=== PATIENT | male | born 1945 | race Caucasian/White ===

== ENCOUNTER 2019-12-08 00:27 | Observation (INO) ==
[2019-12-08 01:03] LABS: Hematocrit 35 % (42-52); Hemoglobin 12.6 g/dL (14.0-18.0); Mean Corpuscular HGB Conc 36 g/dL (31-36); Mean Corpuscular Hemoglobin 33 pg (27-31); Mean Corpuscular Volume 94 fL (80-94); Platelet Count 165 10^3/uL (150-450); Red Blood Count 3.78 10^6 /uL (4.18-5.48); Red Cell Distribution Width 13 % (10-15); White Blood Count 6.6 10^3/uL (3.5-10.8)
[2019-12-08 01:19] LABS: Albumin/Globulin Ratio 1.9 (1-3); BUN/Creatinine Ratio 17.9 (8-20); Calcium 8.5 mg/dL (8.6-10.3); EGFR African American 118.4 (>60); EGFR Non-African American 97.8 (>60); Globulin 2.1 g/dL (2-4); Potassium 3.7 mmol/L (3.5-5.0); Total Bilirubin 0.4 mg/dL (0.2-1.0); Total Protein 6.1 g/dL (6.4-8.9)
[2019-12-08 01:21] LABS: Troponin I 0.01 ng/mL (<0.03)
[2019-12-08 01:52] LABS: Urine Appearance Clear; Urine Bilirubin Negative (Negative); Urine Blood 1+ (Negative); Urine Color Yellow; Urine Glucose Negative (Negative); Urine Ketones Negative (Negative); Urine Nitrite Negative (Negative); Urine Protein Negative (Negative); Urine Specific Gravity 1.006 (1.010-1.030); Urine Urobilinogen Negative (Negative)
[2019-12-08 01:55] LABS: Urine Bacteria Absent (Absent); Urine Red Blood Cell Trace(0-2/hpf) (Absent); Urine White Blood Cell Trace(0-5/hpf) (Absent)
[2019-12-08 02:14] LABS: TSH (Thyroid Stimulating Horm) 1.88 mcIU/mL (0.34-5.60)
[2019-12-08] MEDS ORDERED: NS 0.9% 1000 ml BAG 1,000 ML IV SCH (02:30)
[2019-12-08] MEDS ORDERED: NS 0.9% 1000 ml BAG 2,000 ML IV ONE (02:31)
[2019-12-08] MEDS ORDERED: Enoxaparin 40 MG/0.4 ML SYR SUBCUT SCH (03:00)
[2019-12-08 03:09] LABS: ABS Basophils 0.1 10^3/ul (0-0.2); ABS Eosinophils 0.1 10^3/ul (0-0.6); ABS Lymphocytes 2.3 10^3/ul (1.0-4.8); ABS Monocytes 0.6 10^3/ul (0-0.8); Eosinophil % 1.8 %; Lymphocyte % 34.3 %; Nucleated Red Blood Cells % 0.1
[2019-12-08] MEDS ORDERED: NS 0.9% 1000 ml BAG 1,000 ML IV ONE (03:30)
[2019-12-08] MEDS ORDERED: Ondansetron 4 mg VIAL 2 MG/ML 2 ml VIAL IV PRN (03:33)
[2019-12-08 03:40] LABS: Urine Benzodiazepine Screen Presumptive Positive (None Detect); Urine Opiates Screen Presumptive Positive (None Detect)
[2019-12-08] MEDS ORDERED: Calcium Carb 1250 mg TAB (500 mg elemental calcium) PO SCH (09:00)
[2019-12-08 11:27] VITALS: BP 126/92
[2019-12-08 17:31] LABS: BUN/Creatinine Ratio 16.3 (8-20); Blood Urea Nitrogen 13 mg/dL (6-24); CO2 Carbon Dioxide 26 mmol/L (22-32); Calcium 9.4 mg/dL (8.6-10.3); Chloride 95 mmol/L (101-111); Glucose 113 mg/dL (70-100); Sodium 131 mmol/L (135-145)
[2019-12-08 18:17] LABS: Anion Gap 10 mmol/L (2-11)
== END 2019-12-08 18:07 | disposition home or self-care (01) ==
LOC: MEDTELE 00:27 → ED 00:27 → MEDTELE 04:07
PROVIDERS: ADMIT Internal Medicine; ATTEND Internal Medicine

== ENCOUNTER 2020-02-21 06:06 | Inpatient (IN) ==
[~2020-02-21 06:06] MED LIST: Buffered Lidocaine 1% SYRIN 1 ml INTRADERM ONE; Dexamethasone IV 4 MG/ML VIAL 1 ml VIAL IV SLOW PU ONE; Lactated Ringers 1000 ml BAG 1,000 ML IV SCH
[2020-02-21] MEDS ORDERED: ceFAZolin 2 GM PREMIX 2 GM/50 ML BAG ONE (06:33)
[2020-02-21] MEDS ORDERED: Buffered Lidocaine 1% SYRIN 1 ml INTRADERM ONE (06:33)
[2020-02-21] MEDS ORDERED: Dexamethasone IV 4 MG/ML VIAL 1 ml VIAL ONE (06:33)
[2020-02-21] MEDS ORDERED: Vancomycin 1,000 MG VIAL ONE (06:56)
[2020-02-21] MEDS ORDERED: Lidocaine 1% w EPI 1:200,000 SDV 30 ML VIAL ONE (06:56)
[2020-02-21] MEDS ORDERED: Bupivacaine 0.5% SDV PF 30ML VIAL ONE (06:57)
[2020-02-21] MEDS ORDERED: Bacitracin OINTMENT TUBE ONE (06:57)
[2020-02-21] MEDS ORDERED: fentaNYL 250 mcg/5 ml 50 MCG/ML 5 ml VIAL (250 MCG) ONE (06:58)
[2020-02-21] MEDS ORDERED: Bacitracin INJECTION 50,000 UNITS ONE ×2 (06:58→09:08)
[2020-02-21] MEDS ORDERED: ceFAZolin VIAL VIAL ONE (06:58)
[2020-02-21] MEDS ORDERED: Propofol 10 MG/ML 20 ML BTL ONE (06:58)
[2020-02-21] MEDS ORDERED: Lidocaine 2% PF 5 ML VIAL ONE (06:58)
[2020-02-21] MEDS ORDERED: Succinylcholine 200 mg VIAL 20 mg/ml 10 ml VIAL (200 mg) ONE (06:58)
[2020-02-21] MEDS ORDERED: Rocuronium 50 mg VIAL 10 mg/ml 5 ml VIAL (50 mg) ONE (06:59)
[2020-02-21] MEDS ORDERED: Ketamine HCL 50 mg/ml 10 ml VIAL (500 MG) ONE (06:59)
[2020-02-21] MEDS ORDERED: EPHEDrine (Pressors) 50 MG/ML VIAL ONE (07:10)
[2020-02-21] MEDS ORDERED: Phenylephrine IV 10 MG/ML 1 ml VIAL ONE (07:10)
[2020-02-21] MEDS ORDERED: Artificial Tear OPHTH.OINT 3.5 GM ONE (07:54)
[2020-02-21] MEDS ORDERED: Acetaminophen IV 1 GM/100ML 100 ML ONE (07:59)
[2020-02-21] MEDS ORDERED: Midazolam 2 mg/2 ml VIAL 1 mg/ml 2 ml VIAL (2 mg) ONE (07:59)
[2020-02-21] MEDS ORDERED: Naloxone 0.4 mg VIAL 0.4 mg/ml 1 ml VIAL IV PRN (08:10)
[2020-02-21] MEDS ORDERED: Ondansetron 4 mg VIAL 2 MG/ML 2 ml VIAL IV PRN ×2 (08:10→12:25)
[2020-02-21] MEDS ORDERED: Remifentanil 2 MG VIAL ONE ×2 (08:32→09:55)
[2020-02-21] MEDS ORDERED: Propofol 1,000 MG/100 ML BTL ONE (09:31)
[2020-02-21] MEDS ORDERED: Ondansetron 4 mg VIAL 2 MG/ML 2 ml VIAL ONE (10:46)
[2020-02-21] MEDS ORDERED: HYDROmorphone 1 MG/1 ML SYRINGE ONE ×2 (11:29→12:08)
[2020-02-21] MEDS: HYDROmorphone 1 MG/1 ML SYRINGE IV PRN ×5 (12:09→12:45)
[2020-02-21] MEDS ORDERED: Magnesium Hydroxide LIQ 30 ML UDC PO PRN (12:25)
[2020-02-21] MEDS ORDERED: Albuterol 2.5mg/3 ml (0.083%) NEB.SOLN INH PRN (12:36)
[2020-02-21] MEDS ORDERED: Morphine 2 MG/ML SYRINGE IV PRN (12:36)
[2020-02-21] MEDS ORDERED: fentaNYL 100 mcg/2 ml 50 MCG/ML VIAL ONE (12:53)
[2020-02-21] MEDS: fentaNYL 100 mcg/2 ml 50 MCG/ML VIAL IV PRN ×4 (12:56→13:43)
[2020-02-21] MEDS: NS 0.9% 1000 ml BAG 1,000 ML IV SCH (15:10)
[2020-02-21] MEDS: Clindamycin 900 MG/D5W BAG 900 MG/50 ML BAG IVPB SCH ×2 (15:18→23:56)
[2020-02-21] MEDS: Acetaminophen IV 1 GM/100ML 100 ML IVPB SCH (16:14)
[2020-02-21] MEDS: Orphenadrine Citrate INJ 30 mg/ml 2 ml VIAL (60 mg) IV SCH (18:23)
[2020-02-21] MEDS: ROSUVASTATIN 20 MG PO SCH (18:23)
[2020-02-21] MEDS: SACUBITRIL PO SCH (21:40)
[2020-02-21] MEDS: VALSARTAN PO SCH (21:40)
[2020-02-21] MEDS: DULoxetine DR 60 mg CAP PO SCH (21:40)
[2020-02-22] MEDS: Acetaminophen IV 1 GM/100ML 100 ML IVPB SCH ×2 (00:46→09:50)
[2020-02-22] MEDS: NS 0.9% 1000 ml BAG 1,000 ML IV SCH ×2 (02:39→14:57)
[2020-02-22] MEDS: Orphenadrine Citrate INJ 30 mg/ml 2 ml VIAL (60 mg) IV SCH (05:34)
[2020-02-22 05:44] LABS: ABS Lymphocytes 0.5 10^3/ul (1.0-4.8); ABS Monocytes 0.5 10^3/ul (0-0.8); ABS Neutrophils 7.3 10^3/ul (1.5-7.7); Hematocrit 32 % (42-52); Hemoglobin 11.1 g/dL (14.0-18.0); Lymphocyte % 6.1 %; Mean Corpuscular HGB Conc 34 g/dL (31-36); Mean Corpuscular Hemoglobin 32 pg (27-31); Mean Corpuscular Volume 92 fL (80-94); Mean Platelet Volume 8.2 fL (7.4-10.4); Platelet Count 182 10^3/uL (150-450); Red Blood Count 3.52 10^6 /uL (4.18-5.48); Red Cell Distribution Width 12 % (10-15); White Blood Count 8.3 10^3/uL (3.5-10.8)
[2020-02-22 06:02] LABS: BUN/Creatinine Ratio 25.3 (8-20); Calcium 8.6 mg/dL (8.6-10.3); EGFR African American 116.7 (>60); EGFR Non-African American 96.4 (>60); Potassium 4.3 mmol/L (3.5-5.0)
[2020-02-22] MEDS: Polyethylene Glycol 3350 17 GM PACKET PO SCH (08:21)
[2020-02-22] MEDS: DULoxetine DR 60 mg CAP PO SCH ×2 (08:22→21:20)
[2020-02-22] MEDS: Calcium Carb 1250 mg TAB (500 mg elemental calcium) PO SCH (08:23)
[2020-02-22] MEDS: Clindamycin 900 MG/D5W BAG 900 MG/50 ML BAG IVPB SCH ×2 (08:23→14:59)
[2020-02-22] MEDS: Fluticasone NASAL SPRAY 50MCG 16 gm SPRAY BTL INTRANASAL SCH (08:23)
[2020-02-22] MEDS: SACUBITRIL PO SCH ×2 (08:24→21:20)
[2020-02-22] MEDS: VALSARTAN PO SCH ×2 (08:24→21:20)
[2020-02-22] MEDS: Enoxaparin 40 MG/0.4 ML SYR SUBCUT SCH (09:50)
[2020-02-22] MEDS: ROSUVASTATIN 20 MG PO SCH (16:57)
[2020-02-23] MEDS: NS 0.9% 1000 ml BAG 1,000 ML IV SCH ×2 (00:03→09:56)
[2020-02-23] MEDS: Clindamycin 900 MG/D5W BAG 900 MG/50 ML BAG IVPB SCH ×3 (00:03→15:29)
[2020-02-23] MEDS: HYDROcodone/ACETAMIN 5/325 mg TAB PO PRN ×2 (01:05→07:34)
[2020-02-23 07:13] LABS: ABS Lymphocytes 1.4 10^3/ul (1.0-4.8); ABS Monocytes 1.1 10^3/ul (0-0.8); ABS Neutrophils 9.2 10^3/ul (1.5-7.7); Eosinophil % 0.1 %; Hematocrit 35 % (42-52); Hemoglobin 12.1 g/dL (14.0-18.0); Lymphocyte % 11.8 %; Mean Corpuscular HGB Conc 35 g/dL (31-36); Mean Corpuscular Hemoglobin 32 pg (27-31); Mean Corpuscular Volume 92 fL (80-94); Mean Platelet Volume 8.3 fL (7.4-10.4); Platelet Count 200 10^3/uL (150-450); Red Blood Count 3.75 10^6 /uL (4.18-5.48); Red Cell Distribution Width 12 % (10-15); White Blood Count 11.7 10^3/uL (3.5-10.8)
[2020-02-23 07:31] LABS: BUN/Creatinine Ratio 12.9 (8-20); Calcium 8.6 mg/dL (8.6-10.3); EGFR African American 154.3 (>60); EGFR Non-African American 127.5 (>60); Magnesium 1.4 mg/dL (1.9-2.7); Potassium 3.6 mmol/L (3.5-5.0)
[2020-02-23] MEDS ORDERED: Magnesium Sulfate IV 0.5 GM/ML 2 ml VIAL (1 gm) IVPB ONE (07:48)
[2020-02-23] MEDS ORDERED: Magnesium Sulfate 4 GM IV IVPB ONE (08:00)
[2020-02-23] MEDS: DULoxetine DR 60 mg CAP PO SCH ×2 (08:57→22:29)
[2020-02-23] MEDS: Enoxaparin 40 MG/0.4 ML SYR SUBCUT SCH (08:58)
[2020-02-23] MEDS: Calcium Carb 1250 mg TAB (500 mg elemental calcium) PO SCH (08:58)
[2020-02-23] MEDS: SACUBITRIL PO SCH ×2 (08:59→22:29)
[2020-02-23] MEDS: VALSARTAN PO SCH ×2 (08:59→22:29)
[2020-02-23] MEDS: Fluticasone NASAL SPRAY 50MCG 16 gm SPRAY BTL INTRANASAL SCH (08:59)
[2020-02-23] MEDS: Polyethylene Glycol 3350 17 GM PACKET PO SCH (09:00)
[2020-02-23] MEDS: ROSUVASTATIN 20 MG PO SCH (17:17)
[2020-02-24] MEDS: Clindamycin 900 MG/D5W BAG 900 MG/50 ML BAG IVPB SCH ×2 (00:08→08:12)
[2020-02-24] MEDS: HYDROcodone/ACETAMIN 5/325 mg TAB PO PRN ×2 (02:47→13:35)
[2020-02-24 04:59] LABS: ABS Lymphocytes 1.4 10^3/ul (1.0-4.8); ABS Monocytes 0.9 10^3/ul (0-0.8); Eosinophil % 0.2 %; Hematocrit 31 % (42-52); Hemoglobin 11.1 g/dL (14.0-18.0); Lymphocyte % 15.2 %; Mean Corpuscular HGB Conc 36 g/dL (31-36); Mean Corpuscular Hemoglobin 33 pg (27-31); Mean Corpuscular Volume 91 fL (80-94); Mean Platelet Volume 8.2 fL (7.4-10.4); Platelet Count 160 10^3/uL (150-450); Red Blood Count 3.41 10^6 /uL (4.18-5.48); Red Cell Distribution Width 12 % (10-15); White Blood Count 9.4 10^3/uL (3.5-10.8)
[2020-02-24 05:17] LABS: BUN/Creatinine Ratio 10.7 (8-20); Calcium 8.6 mg/dL (8.6-10.3); EGFR African American 173.5 (>60); EGFR Non-African American 143.4 (>60); Potassium 3.1 mmol/L (3.5-5.0)
[2020-02-24] MEDS ORDERED: Magnesium Sulfate 2 gm BAG 2 GM/50 ML BAG IVPB ONE (07:53)
[2020-02-24] MEDS ORDERED: KCL 20 MEQ/100 ML IVPREMIX 20 MEQ/100 ML BAG IV ONE (07:58)
[2020-02-24] MEDS: DULoxetine DR 60 mg CAP PO SCH (08:15)
[2020-02-24] MEDS: SACUBITRIL PO SCH (08:16)
[2020-02-24] MEDS: VALSARTAN PO SCH (08:16)
[2020-02-24] MEDS: Calcium Carb 1250 mg TAB (500 mg elemental calcium) PO SCH (08:16)
[2020-02-24] MEDS: Fluticasone NASAL SPRAY 50MCG 16 gm SPRAY BTL INTRANASAL SCH (08:17)
[2020-02-24] MEDS: Enoxaparin 40 MG/0.4 ML SYR SUBCUT SCH (08:19)
[2020-02-24] MEDS ORDERED: Potassium Chlor 20 meq TAB.ER PO SCH (09:00)
[2020-02-24 12:04] VITALS: BP 142/78
[2020-02-24 12:15] LABS: BUN/Creatinine Ratio 12.7 (8-20); Calcium 8.6 mg/dL (8.6-10.3); EGFR African American 151.5 (>60); EGFR Non-African American 125.2 (>60); Magnesium 1.7 mg/dL (1.9-2.7)
== END 2020-02-24 14:35 | disposition home or self-care (01) | DRG 519 ==
LOC: AA 06:06 → SSU 14:01
PROVIDERS: ADMIT Neurological Surgery; ATTEND Neurological Surgery

== ENCOUNTER 2020-07-22 06:12 | Observation (INO) ==
[~2020-07-22 06:12] MED LIST changes: -Dexamethasone IV 4 MG/ML VIAL 1 ml VIAL IV SLOW PU ONE; +ceFAZolin 2 GM PREMIX 2 GM/50 ML BAG ONE
[2020-07-22] MEDS ORDERED: Labetalol IV 5 MG/ML 20 ml VIAL ONE (07:00)
[2020-07-22] MEDS ORDERED: fentaNYL 250 mcg/5 ml 50 MCG/ML 5 ml VIAL (250 MCG) ONE (07:00)
[2020-07-22] MEDS ORDERED: Propofol 10 MG/ML 20 ML BTL ONE (07:01)
[2020-07-22] MEDS ORDERED: Dexamethasone IV 4 MG/ML VIAL 1 ml VIAL ONE (07:01)
[2020-07-22] MEDS ORDERED: ROPIVACAINE 5 MG/ML 30 ML BTL (0.5%) ONE (07:01)
[2020-07-22] MEDS ORDERED: Lidocaine 2% PF 5 ML VIAL ONE (07:01)
[2020-07-22] MEDS ORDERED: Rocuronium 50 mg VIAL 10 mg/ml 5 ml VIAL (50 mg) ONE (07:01)
[2020-07-22] MEDS ORDERED: Midazolam 2 mg/2 ml VIAL 1 mg/ml 2 ml VIAL (2 mg) ONE (07:06)
[2020-07-22] MEDS ORDERED: Vancomycin 1,000 MG VIAL ONE (07:23)
[2020-07-22] MEDS ORDERED: EPHEDrine (Pressors) 50 MG/ML VIAL ONE (08:51)
[2020-07-22] MEDS ORDERED: Phenylephrine 40 mcg/mL 10mL (400mcg) SYRINGE ONE (09:03)
[2020-07-22] MEDS ORDERED: fentaNYL 100 mcg/2 ml 50 MCG/ML VIAL IV PRN (09:30)
[2020-07-22] MEDS ORDERED: oxyCODONE/Acetamin 5/325 mg TAB PO PRN (09:30)
[2020-07-22] MEDS ORDERED: Ondansetron 4 mg VIAL 2 MG/ML 2 ml VIAL IV PRN ×2 (09:30→10:39)
[2020-07-22] MEDS ORDERED: Naloxone 0.4 mg VIAL 0.4 mg/ml 1 ml VIAL IV PRN (09:30)
[2020-07-22] MEDS ORDERED: DiMENhydriNATE IV 50 mg/ml 1 ml VIAL IV PUSH PRN (09:30)
[2020-07-22] MEDS ORDERED: diPHENhydraMINE IV 50 MG/ML 1 ml VIAL (BENADRYL) IV PRN (10:39)
[2020-07-22] MEDS ORDERED: diPHENhydraMINE 25 mg TAB PO PRN (10:39)
[2020-07-22] MEDS ORDERED: Ondansetron ODT 4 mg TAB 4 MG TAB PO PRN (10:39)
[2020-07-22] MEDS ORDERED: Lactulose 30 ml UDC PO PRN (10:39)
[2020-07-22] MEDS ORDERED: Magnesium Hydroxide LIQ 30 ML UDC PO PRN (10:39)
[2020-07-22] MEDS ORDERED: hydrALAZINE 20 mg/ml 1 ML Vial IV ONE ×2 (10:44→15:06)
[2020-07-22] MEDS ORDERED: Morphine 2 MG/ML SYRINGE IV PRN (10:51)
[2020-07-22] MEDS: hydrALAZINE 20 mg/ml 1 ML Vial IV IV SLOW PU PRN ×2 (10:55→11:15)
[2020-07-22] MEDS ORDERED: HYDROcodone/ACETAMIN 5/325 mg TAB PO PRN (10:57)
[2020-07-22] MEDS ORDERED: D5W 1/2 NS 1000 ml BAG 1,000 ML IV SCH (11:00)
[2020-07-22] MEDS ORDERED: hydrALAZINE 20 mg/ml 1 ML Vial IV IV SLOW PU ONE ×3 (14:56→22:04)
[2020-07-22] MEDS: ceFAZolin 1 GM ADVAN 1 GM in NS 0.9% 50 ML 50 ML IVPB SCH ×2 (16:02→23:51)
[2020-07-22] MEDS ORDERED: Labetalol IV 5 MG/ML 20 ml VIAL IV PUSH ONE ×2 (17:48→18:47)
[2020-07-22] MEDS: DULoxetine DR 60 mg CAP PO SCH (20:33)
[2020-07-22] MEDS: Magnesium Hydroxide LIQ 30 ML UDC PO SCH (20:49)
[2020-07-23 06:35] LABS: Hematocrit 32 % (42-52); Hemoglobin 11.2 g/dL (14.0-18.0); Mean Platelet Volume 7.7 fL (7.4-10.4); Platelet Count 162 10^3/uL (150-450)
[2020-07-23 06:50] LABS: BUN/Creatinine Ratio 14.1 (8-20); Calcium 9.5 mg/dL (8.6-10.3); EGFR African American 148.7 (>60); EGFR Non-African American 122.9 (>60); Potassium 3.7 mmol/L (3.5-5.0)
[2020-07-23] MEDS: ceFAZolin 1 GM ADVAN 1 GM in NS 0.9% 50 ML 50 ML IVPB SCH (07:54)
[2020-07-23] MEDS: DULoxetine DR 60 mg CAP PO SCH (07:58)
[2020-07-23] MEDS: Magnesium Hydroxide LIQ 30 ML UDC PO SCH (08:00)
[2020-07-23] MEDS ORDERED: Calcium Carb (TUMS) 500 mg CHEW TAB PO SCH (09:00)
[2020-07-23] MEDS ORDERED: Vitamin THERAPEUTIC TAB PO SCH (09:00)
[2020-07-23] MEDS ORDERED: Fluticasone NASAL SPRAY 50MCG 16 gm SPRAY BTL INTRANASAL SCH (09:00)
[2020-07-23] MEDS ORDERED: Potassium Chlor 20 meq TAB.ER PO SCH (09:00)
[2020-07-23 11:18] VITALS: BP 155/85
== END 2020-07-23 13:15 | disposition home or self-care (01) ==
LOC: AA 06:12 → INTOOBSV 06:12 → SSU 11:48
PROVIDERS: ADMIT Orthopaedic Surgery; ATTEND Orthopaedic Surgery

== ENCOUNTER 2020-09-10 23:30 | Observation (INO) ==
[2020-09-10] MEDS ORDERED: NS 0.9% 1000 ml BAG 1,000 ML IV ONE (23:32)
[2020-09-10] MEDS ORDERED: Lorazepam PYXIS KEY PRN (23:38)
[2020-09-10] MEDS ORDERED: LORazepam 2 mg VIAL 1 ml IV PUSH ONE (23:38)
[2020-09-10] MEDS ORDERED: Lorazepam PYXIS KEY ONE (23:41)
[2020-09-11] MEDS ORDERED: Iodixanol (CONTRAST) 320 MG/ML 100 ML SDV IV ONE
[2020-09-11 00:19] LABS: ABS Eosinophils 0.2 10^3/ul (0-0.6); ABS Lymphocytes 1.5 10^3/ul (1.0-4.8); ABS Monocytes 0.5 10^3/ul (0-0.8); ABS Neutrophils 2.8 10^3/ul (1.5-7.7); Hematocrit 38 % (42-52); Lymphocyte % 30.5 %; Mean Corpuscular HGB Conc 34 g/dL (31-36); Mean Corpuscular Hemoglobin 31 pg (27-31); Mean Corpuscular Volume 93 fL (80-94); Mean Platelet Volume 7.7 fL (7.4-10.4); Nucleated Red Blood Cells % 0.1; Platelet Count 175 10^3/uL (150-450); Red Blood Count 4.14 10^6 /uL (4.18-5.48); Red Cell Distribution Width 13 % (10-15)
[2020-09-11 00:25] LABS: Activated Partial Thrombo Time 20.1 seconds (26.0-38.0); INR 0.98 (0.82-1.09)
[2020-09-11 00:34] LABS: Albumin 4.4 g/dL (3.2-5.2); Calcium 9.1 mg/dL (8.6-10.3); EGFR African American 107.2 (>60); EGFR Non-African American 88.6 (>60); Total Protein 6.8 g/dL (6.4-8.9)
[2020-09-11 00:35] LABS: Albumin/Globulin Ratio 1.8 (1-3); Globulin 2.4 g/dL (2-4); HDL Cholesterol 53.5 mg/dL; Total Bilirubin 0.3 mg/dL (0.2-1.0); Troponin I 0.01 ng/mL (<0.03)
[2020-09-11 00:59] LABS: Potassium 4.6 mmol/L (3.5-5.0)
[2020-09-11 01:19] LABS: Urine Appearance Clear; Urine Bilirubin Negative (Negative); Urine Blood Negative (Negative); Urine Color Straw; Urine Glucose Negative (Negative); Urine Ketones Negative (Negative); Urine Nitrite Negative (Negative); Urine Protein 1+(30 mg/dL) (Negative); Urine Specific Gravity 1.017 (1.002-1.030); Urine Urobilinogen Negative (Negative)
[2020-09-11 01:23] LABS: Urine Bacteria Absent (Absent); Urine Red Blood Cell Absent (Absent); Urine White Blood Cell Absent (Absent)
[2020-09-11 01:27] LABS: Urine Benzodiazepine Screen None Detected (None Detect); Urine Cannabinoids Screen None Detected (None Detect); Urine Opiates Screen Presumptive Positive (None Detect)
[2020-09-11] MEDS ORDERED: HYDROcodone/ACETAMIN 5/325 mg TAB PO PRN (01:40)
[2020-09-11] MEDS ORDERED: Thiamine 100 MG/ML 2 ml VIAL 100 MG, Folic Acid IV 1 MG, Multiple Vitamin IV ADULT 10 M... IV ONE (01:43)
[2020-09-11 02:46] LABS: C Reactive Protein 4.23 mg/L (<8.01)
[2020-09-11] MEDS ORDERED: Fluticasone NASAL SPRAY 50MCG 16 gm SPRAY BTL INTRANASAL SCH (09:00)
[2020-09-11] MEDS ORDERED: DULoxetine DR 30 mg CAP PO SCH (09:00)
[2020-09-11] MEDS ORDERED: Enoxaparin 40 MG/0.4 ML SYR SUBCUT SCH (10:00)
[2020-09-11] MEDS ORDERED: hydrALAZINE 20 mg/ml 1 ML Vial IV IV SLOW PU ONE (11:14)
[2020-09-11 14:42] VITALS: BP 150/108
== END 2020-09-11 16:23 | disposition home or self-care (01) ==
LOC: MEDTELE 23:30 → ED 23:30 → MEDTELE 09-11 03:23
PROVIDERS: ADMIT Internal Medicine; ATTEND Student in an Organized Health Care Education/Training Program